=== PATIENT | female | born 1990 | race African-American/Black ===

== ENCOUNTER 2017-11-11 12:56 | Emergency (ER) | payer OTHER ==
[2017-11-11] MEDS: NORCO, ANEXSIA 5/325MG TABLET (HYDROcodone/ACETAMINOPHEN) PO (13:59)
== END 2017-11-11 14:08 | disposition home or self-care (01) ==
LOC: M ED 12:56
DX: S80.02XA Contusion of left knee, initial encounter (principal); W17.89XA Other fall from one level to another, initial encounter; Y92.410 Unspecified street and highway as the place of occurrence of the external cause
CPT/HCPCS: 73564

== ENCOUNTER 2017-12-04 07:47 | Emergency (ER) | payer OTHER | END 2017-12-04 09:26 | disposition home or self-care (01) | LOC: M ED 07:47 | DX: J32.9 Chronic sinusitis, unspecified (principal); H66.91 Otitis media, unspecified, right ear | CPT/HCPCS: 87880 ==